=== PATIENT | female | born 1990 | race Caucasian/White ===

== ENCOUNTER 2021-11-02 08:14 | Emergency (ER) | payer OTHER ==
[~2021-11-02] VITALS: Ht 172.7 cm; Wt 90.7 kg
[~2021-11-02 08:14] MED LIST: Crutch1 EACH MISC
[2021-11-02] MEDS ORDERED: TRAZ50 PO (08:29)
[2021-11-02] MEDS ORDERED: XARELTO20 MG PO (08:29)
[2021-11-02] MEDS ORDERED: PRED20 PO (10:14)
[2021-11-02] MEDS ORDERED: ALBU90OI INH (10:14)
== END 2021-11-02 10:49 | disposition home or self-care (01) ==
LOC: ER 08:14
DX: J45.901 Unspecified asthma with (acute) exacerbation (principal); J06.9 Acute upper respiratory infection, unspecified; F17.200 Nicotine dependence, unspecified, uncomplicated; Z20.822 Contact with and (suspected) exposure to COVID-19
CPT/HCPCS: 71046; A9270; J7512

== ENCOUNTER 2023-05-13 21:30 | Emergency (ER) | payer OTHER ==
[~2023-05-13] VITALS: Ht 172.7 cm; Wt 96.0 kg
[~2023-05-13 21:30] MED LIST changes: +ALBU90OI INH; +PRED20 PO; +TRAZ50 PO; +XARELTO20 MG PO
[2023-05-13 21:39] VITALS: BP 152/99
== END 2023-05-13 22:47 | disposition home or self-care (01) ==
LOC: ER 21:30
DX: I82.532 Chronic embolism and thrombosis of left popliteal vein (principal); R60.0 Localized edema; F17.210 Nicotine dependence, cigarettes, uncomplicated; F17.290 Nicotine dependence, other tobacco product, uncomplicated; Z79.52 Long term (current) use of systemic steroids; Z79.02 Long term (current) use of antithrombotics/antiplatelets
CPT/HCPCS: 93971; 99283-25

== ENCOUNTER 2023-07-06 08:50 | Emergency (ER) | payer OTHER ==
[~2023-07-06] VITALS: Ht 170.2 cm; Wt 68.0 kg
[2023-07-06 10:23] LABS: Source, Urine Clean Catch
[2023-07-06 10:25] LABS: Appearance, Urine Hazy (Clear); Bilirubin, Urine Neg (Neg); Blood, Urine 3+ (Neg); Color, Urine Yellow (P-Yellow); Glucose Qualitative, Urine Neg (Neg); Ketones, Urine 1+ (Neg); Leukocyte Esterase, Urine 1+ (Neg); Nitrite, Urine Neg (Neg); Protein, Urine 2+ (Neg); Specific Gravity, Urine 1.025 (1.003-1.022); Urobilinogen, Urine 1+ (Normal)
[2023-07-06 10:31] LABS: Mucus Heavy (0-Heavy)
[2023-07-06 10:32] LABS: Bacteria Few /hpf; Squamous Epithelial Cells Many /hpf (Few)
[2023-07-06 10:35] LABS: BASOPHILS ABSOLUTE AUTO 0.08 K/mm3 (0.00-0.23); BASOPHILS PERCENT AUTO 1 % (0-2); EOSINOPHILS ABSOLUTE AUTO 0.28 K/mm3 (0.00-0.68); EOSINOPHILS PERCENT AUTO 3 % (0-6); Hematocrit 46.4 % (33.0-51.0); Hemoglobin 15.3 g/dL (11.5-16.0); IMMATURE GRAN ABSOLUTE AUTO 0.01 K/mm3 (0.00-0.10); IMMATURE GRAN PERCENT AUTO 0 % (0-1); LYMPHOCYTES ABSOLUTE AUTO 2.03 K/mm3 (0.84-5.20); LYMPHOCYTES PERCENT AUTO 21 % (21-46); MONOCYTES ABSOLUTE AUTO 0.63 K/mm3 (0.16-1.47); MONOCYTES PERCENT AUTO 6 % (4-13); Mean Corpuscular HGB 28.2 pg (26.0-34.0); Mean Corpuscular Volume 86 fL (80-100); Mean Platelet Volume 10.2 fL (9.1-12.4); NEUTROPHILS ABSOLUTE AUTO 6.74 K/mm3 (1.96-9.15); NEUTROPHILS PERCENT AUTO 69 % (41-73); Platelet Count 325 K/mm3 (150-400); RDW Coefficient Variation 13.2 % (11.7-14.2); RDW Standard Deviation 41.2 fL (35.1-46.3); Red Blood Cell Count 5.43 M/mm3 (3.80-5.20); White Blood Cell Count 9.77 K/mm3 (4.00-11.30)
[2023-07-06 10:57] LABS: Albumin, Blood 3.7 g/dL (3.4-5.0); Bilirubin, Total 0.3 mg/dL (0.1-1.0); Bun/Creatinine Ratio 11.8 (12.0-20.0); Calcium, Blood 8.7 mg/dL (8.5-10.1); Creatinine, Blood 0.85 mg/dL (0.40-1.00); Globulin, Blood 3.8 g/dL (2.2-4.0); Potassium, Blood 3.7 mmol/L (3.5-5.5); Total Protein, Blood 7.5 g/dL (6.4-8.2)
[2023-07-06] MEDS ORDERED: CYCL10 PO (12:44)
[2023-07-06 13:00] VITALS: BP 124/78
== END 2023-07-06 13:00 | disposition home or self-care (01) ==
LOC: ER 08:50
PROVIDERS: Physician Assistant
DX: R10.9 Unspecified abdominal pain (principal); F17.210 Nicotine dependence, cigarettes, uncomplicated; F17.290 Nicotine dependence, other tobacco product, uncomplicated
CPT/HCPCS: 74176; 80053; 81001; 81025; 83690; 85025; 87086; 96374; 96375; 99284-25; J1885; J2405

== ENCOUNTER 2023-07-22 16:51 | Emergency (ER) | payer OTHER ==
[~2023-07-22] VITALS: Ht 172.7 cm; Wt 83.9 kg
[~2023-07-22 16:51] MED LIST changes: +CYCL10 PO
[2023-07-22] MEDS ORDERED: XARELTO20 MG PO (21:21)
[2023-07-22 21:39] VITALS: BP 112/77
== END 2023-07-22 21:40 | disposition home or self-care (01) ==
LOC: ER 16:51
DX: S80.11XA Contusion of right lower leg, initial encounter (principal); I82.532 Chronic embolism and thrombosis of left popliteal vein; J45.909 Unspecified asthma, uncomplicated; F17.210 Nicotine dependence, cigarettes, uncomplicated; Z79.01 Long term (current) use of anticoagulants; X58.XXXA Exposure to other specified factors, initial encounter
CPT/HCPCS: 93970; 99283-25; A9270